=== PATIENT | female | born 1975 | race Caucasian/White ===

== ENCOUNTER 2019-06-13 07:20 | Emergency (ER) | payer MEDICAID ==
[~2019-06-13] VITALS: Ht 160 cm; Wt 88.5 kg
[2019-06-13 07:33] VITALS: BP 139/97; Ht 160 cm; Wt 88.5 kg
== END 2019-06-13 10:11 | disposition home or self-care (01) ==
LOC: ED 07:20
DX: J02.9 Acute pharyngitis, unspecified (principal)